=== PATIENT | female | born 1990 | race Hispanic/Latino ===

== ENCOUNTER 2021-08-04 09:33 | Emergency (ER) | payer BC, OTHER ==
[2021-08-04 10:49] LABS: #Eosinphils 0.1 10x3/uL (0.0-0.5); #Monocytes 0.5 10x3/uL (0.0-1.1); %Basophils 0.2 % (0.0-2.0); %Eosinophils 1.2 % (0.0-6.0); %Monocytes 4.5 % (0.0-10.0); %Neutrophils 73.5 % (40.0-75.0); Hemoglobin 11.7 g/dL (12.0-15.5); Mean Corpuscular HGB CONC 34.7 g/dL (32.0-36.0); Mean Corpuscular Hemoglobin 32.5 pg (27.0-33.0); Mean Corpuscular Volume 93.6 fl (81.6-98.3); Mean Platelet Volume 10.5 fl (7.4-10.4); Platelet Count 245 10x3/uL (150-450); RBC Distribution Width 13.1 % (11.5-14.5); White Blood Cell (WBC) Count 10.9 10x3/uL (3.5-10.5)
[2021-08-04 10:56] LABS: Bilirubin Neg (Negative); Blood, Urine Negative (Negative); Clarity Clear (Clear); Glucose, Urine (Dipstick) 50 mg/dL (Negative); Ketone, Urine Negative (Negative); Leukocyte Negative (Negative); Nitrite Negative (Negative); Protein, Urine (Dipstick) Negative (Neg-Trace); Urobilinogen Normal mg/dL (Less than 2)
[2021-08-04 10:57] LABS: CRP (Inflammatory) 1.78 mg/dL (= or < 0.5)
[2021-08-04 10:58] LABS: ALT (SGPT) 10 U/L (8-55); AST (SGOT) 13 U/L (5-34); Albumin 3.5 g/dL (3.5-5.0); Alkaline Phosphatase 55 U/L (40-110); Anion Gap 12 mmol/L (10-20); BUN (Urea Nitrogen) 6 mg/dL (7.0-18.7); Bilirubin, Total 0.2 mg/dL (0.2-1.2); Calc. Creatinine Clearance 0 mL/min (70-130); Calcium 8.8 mg/dL (7.8-10.44); Carbon Dioxide 20 mmol/L (22-29); Chloride 106 mmol/L (98-107); Globulin 2.9 g/dL (2.4-3.5); Glucose 165 mg/dL (70-105); Potassium 3.8 mmol/L (3.5-5.1); Protein, Total 6.4 g/dL (6.0-8.3); Sodium 134 mmol/L (136-145)
[2021-08-04 11:40] LABS: SARS-CoV-2 NAA Rapid Test Not Detected (NotDetected)
== END 2021-08-04 13:15 | disposition home or self-care (01) ==
LOC: CSHERS 09:33
DX: O99.891 Other specified diseases and conditions complicating pregnancy (principal); R00.2 Palpitations; Z20.822 Contact with and (suspected) exposure to COVID-19; Z3A.20 20 weeks gestation of pregnancy
CPT/HCPCS: 36416; 71275; 80053; 81003; 82550; 85025; 85379; 86140; 87086; 93005

== ENCOUNTER 2021-11-28 15:18 | Day surgery (SDC) | payer OTHER | END 2021-11-28 17:23 | disposition home or self-care (01) | LOC: CSHLD/OP 15:18 | PROVIDERS: ATTEND Family Medicine | DX: Z36.83 Encounter for fetal screening for congenital cardiac abnormalities (principal); O24.419 Gestational diabetes mellitus in pregnancy, unspecified control; Z3A.37 37 weeks gestation of pregnancy | CPT/HCPCS: 76816; 76819; 99282 ==

== ENCOUNTER 2021-12-09 08:25 | Outpatient (CLI) | payer OTHER | END 2021-12-09 08:26 | disposition home or self-care (01) | LOC: CSHLAB 08:25 | PROVIDERS: ATTEND Family Medicine | DX: Z20.822 Contact with and (suspected) exposure to COVID-19 (principal) | CPT/HCPCS: 87811 ==

== ENCOUNTER 2021-12-13 02:34 | Inpatient (IN) | payer OTHER ==
[2021-12-13 03:04] VITALS: BMI 45.3
[2021-12-13] MEDS ORDERED: Acetaminophen 500 MG TAB PO PRN (04:15)
[2021-12-13] MEDS ORDERED: Ondansetron PF 4 MG/2 ML Vial IVP PRN ×2 (04:15→13:25)
[2021-12-13] MEDS ORDERED: Lactated Ringer's 1,000 ML IV SCH ×2 (04:15)
[2021-12-13] MEDS ORDERED: hydrALAZINE 20 MG/ML VIAL SLOW IVP PRN (04:15)
[2021-12-13] MEDS ORDERED: Promethazine HCl 25 MG/ML VIAL IM PRN ×2 (04:15→13:25)
[2021-12-13] MEDS ORDERED: Ibuprofen 800 MG TAB PO PRN (04:30)
[2021-12-13] MEDS ORDERED: Methylergonovine 0.2 MG/ML VIAL IM PRN (04:30)
[2021-12-13] MEDS ORDERED: Carboprost 250 MCG/ML AMP IM PRN (04:30)
[2021-12-13] MEDS ORDERED: Misoprostol 200 MCG TAB RC PRN (04:30)
[2021-12-13 04:39] LABS: Hemoglobin 12.9 g/dL (12.0-15.5); Mean Corpuscular HGB CONC 34.8 g/dL (32.0-36.0); Mean Corpuscular Hemoglobin 30.9 pg (27.0-33.0); Mean Platelet Volume 11.1 fl (7.4-10.4); Platelet Count 218 10x3/uL (150-450); RBC Distribution Width 14.6 % (11.5-14.5); Red Blood Cell (RBC) Count 4.17 10x6/uL (3.90-5.03); White Blood Cell (WBC) Count 10.7 10x3/uL (3.5-10.5)
[2021-12-13 05:05] LABS: HBSAg Index 0.17 S/CO (0-0.99); Hep B Surf Ag Non-Reactive S/CO (NonReactive)
[2021-12-13 05:29] LABS: Glucose 96 mg/dL (70-105)
[2021-12-13 05:31] LABS: Syphilis Antibody Nonreactive (Nonreactive); Syphilis Antibody Index 0.07 S/CO (<1.00 Non-Reactive)
[2021-12-13] MEDS ORDERED: Misoprostol 100 MCG TAB PO SCH (06:00)
[2021-12-13] MEDS ORDERED: Bupivacaine 0.25% HCL 30 ML VIAL ONE (08:00)
[2021-12-13] MEDS: NS w/ Oxytocin 30 units 500 ML IVPB SCH (10:58)
[2021-12-13] MEDS ORDERED: Fentanyl 2 mcg/Bup 0.1% Cadd 100 ML ONE (12:09)
[2021-12-13] MEDS ORDERED: Moisturizing Cream (Eucerin) 113 GM JAR TOP PRN (13:25)
[2021-12-13] MEDS ORDERED: ePHEDrine Sulfate 50 MG/10 ML VIAL SLOW IVP PRN (13:25)
[2021-12-13] MEDS ORDERED: Naloxone HCl 0.4 mg/ml Vial IVP PRN ×2 (13:25)
[2021-12-13] MEDS ORDERED: Lactated Ringer's 500 ML IV PRN (13:25)
[2021-12-13] MEDS ORDERED: Acetaminophen 325 MG TAB PO PRN (13:25)
[2021-12-13] MEDS ORDERED: diphenhydrAMINE 50 MG/ML VIAL IVP PRN (13:25)
[2021-12-13] MEDS ORDERED: Communication Order-Pharmacy FS SCH (13:30)
[2021-12-13] MEDS ORDERED: Fentanyl 2 mcg/Bupivacaine 0.1% Cassette 100 ML EPIDURAL SCH (13:30)
[2021-12-14] LABS: RapidComm Collect By CBN
[2021-12-14] MEDS: NS w/ Oxytocin 30 units 500 ML IVPB SCH (00:02)
[2021-12-14 00:03] LABS: RapidComm Collect By CBN; pH (Cord, venous) 7.323 (7.250-7.350)
[2021-12-14] MEDS ORDERED: Milk Of Magnesia 30 ML UDCUP PO PRN (05:09)
[2021-12-14] MEDS ORDERED: HYDROcodone/Acetaminophen 5/325 mg Tablet PO PRN (05:09)
[2021-12-14] MEDS ORDERED: Promethazine HCl 25 MG/ML VIAL IM PRN (05:09)
[2021-12-14] MEDS ORDERED: Bisacodyl 10 MG SUPP PR PRN (05:09)
[2021-12-14] MEDS ORDERED: hydrALAZINE 20 MG/ML VIAL SLOW IVP PRN (05:09)
[2021-12-14] MEDS ORDERED: Preparation H Ointment 28 GM TUBE PR PRN (05:09)
[2021-12-14] MEDS ORDERED: diphenhydrAMINE 25 MG CAP PO PRN (05:09)
[2021-12-14] MEDS ORDERED: Benzocaine-Menthol 82.5 ML CAN TOP PRN (05:09)
[2021-12-14] MEDS ORDERED: Ondansetron PF 4 MG/2 ML Vial IVP PRN (05:09)
[2021-12-14] MEDS ORDERED: Boostrix 0.5 ML (Tdap) VIAL IM ONE (05:09)
[2021-12-14] MEDS ORDERED: Lanolin Ointment 7 GM TUBE TOP PRN (05:09)
[2021-12-14] MEDS ORDERED: NS w/ Oxytocin 30 units 500 ML IV SCH (05:15)
[2021-12-14] MEDS ORDERED: Benzocaine-Menthol 82.5 ML CAN ONE (07:31)
[2021-12-14] MEDS: Docusate 100 MG CAP PO SCH ×2 (08:34→21:14)
[2021-12-14] MEDS: Prenatal Vitamin 1 TAB PO SCH (08:34)
[2021-12-14] MEDS: Ibuprofen 800 MG TAB PO SCH ×2 (08:34→17:08)
[2021-12-14] MEDS: Ferrous Sulfate 325 MG TAB PO SCH ×2 (08:35→17:13)
[2021-12-14] MEDS: HYDROcodone/Acetaminophen 5/325 mg Tablet PO PRN ×2 (12:33→17:12)
[2021-12-15] MEDS: Ibuprofen 800 MG TAB PO SCH ×2 (00:28→08:21)
[2021-12-15 07:46] VITALS: BP 127/60; TEMP 97.6
[2021-12-15] MEDS: Prenatal Vitamin 1 TAB PO SCH (08:21)
[2021-12-15] MEDS: Docusate 100 MG CAP PO SCH (08:21)
[2021-12-15] MEDS: HYDROcodone/Acetaminophen 5/325 mg Tablet PO PRN (08:21)
[2021-12-15] MEDS: Ferrous Sulfate 325 MG TAB PO SCH (15:14)
== END 2021-12-15 14:20 | disposition home or self-care (01) | DRG 806 ==
LOC: CSHLD/OP 02:34 → CSHLD 03:22 → CSHPP 12-14 02:32
PROVIDERS: ADMIT Family Medicine; ATTEND Family Medicine
PROC: 3E0P7VZ Introduction of Hormone into Female Reproductive, Via Natural or Artificial Opening (ICD-10-PCS; principal; 2021-12-14)
PROC: 10E0XZZ Delivery of Products of Conception, External Approach (ICD-10-PCS; 2021-12-14)
PROC: 0W8NXZZ Division of Female Perineum, External Approach (ICD-10-PCS; 2021-12-14)
PROC: 0UQG7ZZ Repair Vagina, Via Natural or Artificial Opening (ICD-10-PCS; 2021-12-14)
DX: O42.02 Full-term premature rupture of membranes, onset of labor within 24 hours of rupture (principal); O71.4 Obstetric high vaginal laceration alone; Z37.0 Single live birth; Z3A.38 38 weeks gestation of pregnancy; O24.420 Gestational diabetes mellitus in childbirth, diet controlled; E66.9 Obesity, unspecified; O99.214 Obesity complicating childbirth; O69.81X0 Labor and delivery complicated by cord around neck, without compression, not applicable or unspecified
CPT/HCPCS: 36416; 51702; 82805; 82947; 85027; 86780; 86850; 86900; 86901; 87340; 99285; J2210; J2405; J2590; S0020

== ENCOUNTER 2021-12-17 13:49 | Emergency (ER) | payer OTHER ==
[2021-12-17] MEDS ORDERED: Ibuprofen 200 MG TAB ONE (15:42)
[2021-12-17] MEDS ORDERED: HYDROcodone/Acetaminophen 5/325 mg Tablet ONE (15:42)
== END 2021-12-17 15:40 | disposition home or self-care (01) ==
LOC: CSHERS 13:49
DX: O90.1 Disruption of perineal obstetric wound (principal)
CPT/HCPCS: 99283